=== PATIENT | male | born 1950 | race Caucasian/White ===

== ENCOUNTER 2020-11-12 18:16 | Emergency (ER) | payer OTHER | END 2020-11-12 18:32 | disposition home or self-care (01) | LOC: JVIRT 18:16 | DX: Z20.822 Contact with and (suspected) exposure to COVID-19 (principal) | CPT/HCPCS: C9803; G2012-GT; U0003 ==

== ENCOUNTER 2020-12-07 17:27 | Emergency (ER) | payer OTHER | END 2020-12-07 18:10 | disposition home or self-care (01) | LOC: JVIRT 17:27 | DX: Z20.822 Contact with and (suspected) exposure to COVID-19 (principal) | CPT/HCPCS: C9803; G2251-GT; U0003 ==

== ENCOUNTER 2021-05-30 10:29 | Emergency (ER) | payer OTHER ==
[2021-06-02 09:24] LABS: SARS-CoV-2 NAA NOT DETECTED
== END 2021-05-30 11:27 | disposition home or self-care (01) ==
LOC: JVIRT 10:29
DX: Z11.52 Encounter for screening for COVID-19 (principal)
CPT/HCPCS: C9803; Q3014-GT; U0003; U0005